=== PATIENT | female | born 1955 | race Caucasian/White ===

== ENCOUNTER 2016-12-25 11:25 | Emergency (ER) | payer SELFPAY ==
[2016-12-25] MEDS ORDERED: VASOTEC10 MG PO (17:33)
[2016-12-25] MEDS ORDERED: FUROSEMIDE20 MG PO (17:33)
[2016-12-25] MEDS ORDERED: ZOCOR20 MG PO (17:34)
[2016-12-25] MEDS ORDERED: SPIRIVA18 MCG INH (17:35)
[2016-12-25] MEDS ORDERED: K-TAB10 MEQ PO (17:36)
[2016-12-25] MEDS ORDERED: XARELTO15 MG PO (17:36)
[2016-12-26 12:58] VITALS: BMI 38.2
== END 2016-12-25 11:59 | disposition other institution (70) ==
LOC: D.ER 11:25
DX: R07.9 Chest pain, unspecified (principal)

== ENCOUNTER 2016-12-25 11:59 | Inpatient (IN) | payer SELFPAY ==
[~2016-12-25] VITALS: Ht 165.1 cm; Wt 102.3 kg
--- NOTE | ~2016-12-25 | HEMODYNAMI ---
PATIENT:FRAN GARCIA MEDICAL RECORD: [id number] : 57 LOCATION:[facility] D.2108 ADMISSION DATE: 12/25/16 Generatedon:12/27/201615:11 Patient name: FRAN GARCIA Patient #: [id number] SSN: DO B: 1955 Date of study: 12/27/2016 Page: Of Hemodynamic Procedure Report Patient Data Patient Demographics Procedure consent was obtained First Name: FRAN Gender: Female Last Name: RADHA : 1955 Middle Initial: NATALIO Age: 61 year(s) Patient #: [id number] Race: Unknown Additional ID: [id number] Contact details Address: [address] [place] [address] State: [facility]: [place] Zip code: [address] Past Medical History Allergies Allergen Reaction Date Comments Reported Penicillins 12/27/2016 Codeine 12/27/2016 Aspirin 12/27/2016 Other allergy 12/27/2016 XANAX Admission Admission Data Admission Date: 12/25/2016 Admission Time: 15:47 Room #: D.2108 Lab Results Lab Result Date: 12/27/2016 Lab Result Time: 0:00 Biochemistry Name Units Result Min Max BUN mg/dl 30 --(----)-* 7 18 Creatinine mg/dl 0.7 --(*---)-- 0.6 1.3 CBC Name Units Result Min Max Hemoglobin g/dl 12.1 *-(----)-- 13.5 17.5 Procedure Procedure Types Cath Procedure Diagnostic Procedure LHC LHC w/Coronaries Miscellaneous Procedures Moderate Sedation up to 15 minutes Procedure Description Procedure Date Procedure Date: 12/27/2016 Procedure Start Time: 15:02 Procedure End Time: 15:10 Procedure Staff Name Function Karin Spencer RN Nurse Sudeep Rodriguez RT Monitor Matt Us RT Scrub Destin Peter MD Performing Physician Procedure Data Cath Procedure Fluoroscopy Diagnostic fluoroscopy Total fluoroscopy Time: 0.8 time: 0.8 min min Diagnostic fluoroscopy Total fluoroscopy dose: dose: 197.51 mGy 197.51 mGy Contrast Material Contrast Material Type Amount (ml) Isovue 300 55 Entry Location Entry Primary Successful Side Size Upsize Upsize Entry Closure Succes sful Closure Location (Fr) 1 (Fr) 2 (Fr) Remarks Device Remarks Femoral Right 5 Fr Exoseal artery Diagnostic catheters Device Type Used For End Catheter Placement Cordis 5Fr JL 4.0 LV Angiography Catheter (MP) Cordis 5Fr 3DRC Catheter Right Coronary (MP) Angiography Cordis 5Fr Pigtail LV Angiography Catheter (MP) Procedure Complications No complications Procedure Medications Medication Administration Route Dosage Oxygen NC 2 l/min Heparin Flush Bag added to field 2 bags (1000units/500ml NS) Lidocaine 2% added to field 20 Versed I.V. 1 mg Fentanyl I.V. 50 mcg Versed I.V. 1 mg Fentanyl I.V. 50 mcg Hemodynamics Rest HGB: 12.1 (g/dl) Heart Rate: 101 (bpm) Pressure Samples Time Site Value (mmHg) Purpose Heart Use Rate(bpm) 15:06 LV 108/7,13 EDP 88 Gradients Valve Time Site Site Mean SEP/DFP Peak To Heart Use 1 2 (mmHg) (sec/min) Peak Rate (mmHg) (bpm) Aortic 15:07 LV AO 88 Snapshots Pre Cath Intra NCS Post Cath Vital Signs Time Heart Resp SPO2 NIBP (mmHg) Rhythm Pain Sedation Rate (ipm) (%) Status Level (bpm) 14:50:13 87 16 98 131/76(99) NSR 0 (11) 10(A) , No pain 14:54:35 89 18 99 127/69(107) NSR 0 (11) 10(A) , No pain 14:58:51 78 15 98 116/66(78) NSR 0 (11) 10(A) , No pain 15:03:09 87 16 97 110/62(80) NSR 0 (11) 9(A) , No pain 15:07:23 98 16 96 99/60(78) NSR 0 (11) 9(A) , No pain 15:10:21 92 16 96 96/54(73) NSR 0 (11) 9(A) , No pain Medications Time Medication Route Dose Verified Delivered Reason Notes Effec tiveness by by 14:53:18 Oxygen NC 2 Cas Karin Per l/min Chalo Spencer RN physician 14:53:28 Heparin Flush added 2 Cas Cas used for Bag to bags Chalo Isabel MD procedure (1000units/500ml field NS) 14:53:36 Lidocaine 2% added 20ml Cas Cas used for to vial Chalo Isabel MD procedure field 15:00:21 Versed I.V. 1 mg Destin Karin for [facility]. Isrrael Spencer RN sedation 15:00:29 Fentanyl I.V. 50 Destin Karin for mcg [place] RN sedation 15:02:26 Versed I.V. 1 mg Destin Karin for St. Isrrael Spencer RN sedation 15:02:38 Fentanyl I.V. 50 Destin Karin for mcg [place] RN sedation Procedure Log Time Note 14:05:18 Matt Us RT(R) sent for patient. Start room use. 14:05:19 Time tracking: Regular hours 14:05:24 Plan of Care:Hemodynamics will remain stable., Cardiac rhythm will remain stable., Comfort level will be maintained., Respiratory function will remain adequate., Patient/ family verbilizes understanding of procedure., Procedure tolerated without complication., Recovers from procedure without complications.. 14:35:32 Patient received from PCU to CCL 3 Alert and oriented. Tansferred to table in Supine position. 14:38:33 Warm blankets applied, and aileen hugger turned on for patient comfort. 14:38:34 Correct patient and procedure confirmed by team. 14:38:35 Signed procedure consent form obtained from patient. 14:38:35 ECG and BP/O2 sat monitors applied to patient. 14:45:07 H&P Date Dictated: 12/25/2016 Within 30 days and on chart., H&P Addendum completed by physician on day of procedure. (MUST COMPLETE FOR ALL OUTPATIENTS). 14:45:08 Pre-procedure instructions explained to patient. 14:45:08 Pre-op teaching completed and patient verbalized understanding. 14:45:11 Family in waiting room. 14:45:14 Patient NPO since Midnight. 14:45:15 Is the patient allergic to Iodine/contrast media? No. 14:45:34 Is patient on blood thinner?Yes 14:45:38 ACC The patient was administered the following blood thiners within the last 24 hours: Xarelto 14:45:41 Patient diabetic? No. 14:45:58 Patient not . Patient is over age 55. 14:45:59 Previous problem with sedation/anesthesia? No ? 14:46:00 Snore? Yes 14:46:01 Sleep apnea? Yes 14:46:08 Deviated septum? No 14:46:09 Opens mouth fully? Yes 14:46:10 Sticks out tongue? Yes 14:46:12 Airway obstruction? No ? 14:46:17 Dentures? No ? 14:46:32 Pre procedure: right dorsailis pedis pulse 1+ Palpable, but thready & weak; easily obliterated 14:46:35 Patient pain scale 0/10 ?. 14:49:05 Vital chart was started 14:52:28 IV patent on arrival in left antecubital with 0.9% NaCl at 10ml/hr. 14:53:00 Lab Result : BUN 30 mg/dl 14:53:00 Lab Result : Creatinine 0.7 mg/dl 14:53:00 Lab Result : Hemoglobin 12.1 g/dl 14:53:04 Lab results completed and on chart. 14:53:08 Right groin area was prepped with chlora-prep and draped in sterile fashion 14:53:09 Alarms reviewed by R. N. 14:53:09 Sharps counted by scrub and verified by R.N. 14:53:18 Oxygen 2 l/min NC was administered by Karin Spencer RN; Per physician; 14:53:24 Patient allergic to Penicillins 14:53:28 Heparin Flush Bag (1000units/500ml NS) 2 bags added to field was administered by Cas Isabel MD; used for procedure; 14:53:31 Patient allergic to Codeine 14:53:36 Lidocaine 2% 20ml vial added to field was administered by Cas Isabel MD; used for procedure; 14:53:38 Patient allergic to Aspirin 14:53:52 Patient allergic to Other allergyXANAX 14:54:00 ACC Patient presents with Unstable Angina CCS Anginal Class 3--Marked limitation of physical activity, angina occurs with ordinary activity.. 14:54:02 Baseline sample Acquired. 14:54:07 Rhythm: sinus tachycardia 14:54:08 Full Disclosure recording started 14:54:18 Use device set Femoral Dx 14:54:19 Acist Syringe opened to sterile field. 14:54:19 Bag Decanter opened to sterile field. 14:54:19 Medline Cath Pack opened to sterile field. 14:54:20 Terumo 5Fr Columbia Sheath opened to sterile field. 14:54:20 St Miquel 260cm J .035 wire opened to sterile field. 14:54:21 Acist Hand Control opened to sterile field. 14:54:22 Acist Manifold opened to sterile field. 14:54:22 Diagnostic Infinity 5Fr Multipack catheter opened to sterile field. 14:54:23 Tegaderm 4 x 4 opened to sterile field. 15:00:18 --------ALL STOP TIME OUT------ 15:00:18 Final Timeout: patient, procedure, and site verified with staff and physician. All members of the team are in agreement. 15:00:20 Right groin site verified by team. 15:00:21 Versed 1 mg I.V. was administered by Karin Spencer RN; for sedation; 15:00:29 Fentanyl 50 mcg I.V. was administered by Karin Spencer RN; for sedation; 15:00:49 Physical assessment completed. ASA score P 2 - A patient with mild systemic disease as per Destin Peter MD. 15:00:53 Sedation plan: IV Moderate Sedation Versed, Fentanyl 15:02:01 Procedure started. 15:02:10 Local anesthetic to right femoral artery with Lidocaine 2% by Destin Peter MD.INITIAL ACCESS ONLY 15:02:17 A 5 Fr sheath was inserted into the Right Femoral artery 15:02:26 Versed 1 mg I.V. was administered by Karin Spencer RN; for sedation; 15:02:38 Fentanyl 50 mcg I.V. was administered by Karin Spencer RN; for sedation; 15:02:38 Zero performed for pressure channel P1 15:02:46 A Cordis 5Fr JL 4.0 Catheter (MP) was advanced over the wire and used for LV Angiography. 15:03:37 LCA angiography performed. 15:04:23 Catheter removed. 15:04:29 A Cordis 5Fr 3DRC Catheter (MP) was advanced over the wire and used for Right Coronary Angiography. 15:04:47 RCA angiography performed. 15:05:50 Catheter removed. 15:06:04 A Cordis 5Fr Pigtail Catheter (MP) was advanced over the wire and used for LV Angiography. 15:06:08 LV angiography performed. 15:06:10 LV gram done using [facility] 15:06:11 LV hemodynamics recorded. 15:06:16 Injector settings: Ml/sec: 10, Volume: 20, 15:07:16 EF : 55 % 15:07:18 Catheter removed. 15:07:35 Contrast amount:Isovue 300 55ml. 15:07:40 Sheath removed intact; hemostasis achieved with Exoseal to the Right Femoral artery. 15:07:42 Procedure ended.(Physican Out) 15:07:57 Fluoroscopy time 00.80 minutes. 15:08:03 Fluoroscopy dose: 197.51 mGy 15:08:03 Flurop Dose total: 197.51 15:08:04 Sharps counted by scrub and verified by R.N. 15:08:05 Insertion/operative site no bleeding no hematoma. 15:08:08 Post-op/insertion site Right Femoral artery dressed using a 4 x 4 and Tegaderm. 15:08:11 Post right femoral artery:stable 15:08:12 Post Procedure Pulses reassessed and unchanged 15:08:14 Post procedure: right dorsailis pedis pulse 1+ Palpable, but thready & weak; easily obliterated. 15:08:19 Post procedure rhythm: sinus tachycardia 15:08:20 Post procedure instruction explained to patient.Patient verbalizes understanding. 15:09:50 Procedure and supply charges have been captured, reviewed, submitted and are correct. 15:10:05 Cordis 5Fr Exoseal opened to sterile field. 15:10:34 Procedure Complication : No complications 15:10:36 Vital chart was stopped 15:10:37 See physician's report for complete and final results. 15:10:40 Report given to PCU. 15:10:43 Patient transfered to PCU with Bed. 15:10:45 Procedure ended. 15:10:45 Full Disclosure recording stopped 15:10:50 End room use (Document Last) Device Usage Item Name Manufacture Quantity Catalog Hospital Part Current Minimal Lo t# / Number Charge Number Stock Stock Serial# Code Acist Acist 1 49087 [id number] 987959 [id number] 20 Syringe Medical Systems Inc Bag Microtek 1 2002S 316580 08109 209209 5 Decanter Medical Inc. Medline Cardinal 1 [id number] 863068 64864 118572 5 Cath Pack Health Terumo 5Fr Terumo 1 [id number] 908395 527322 741615 [address] [facility] Miquel 1 989638 517911 852546 923667 30 260cm J .035 wire Acist Hand Acist 1 54294 015428 200560 528096 5 Control Medical Systems Inc Acist Acist 1 29947 206826 105384 134158 5 Manifold Medical Systems Inc Diagnostic Cardinal 1 [id number] 862284 91648 541460 30 Infinity Health 5Fr Multipack catheter Tegaderm 4 3M 1 1626W 587370 285090 495479 5 x 4 Cordis 5Fr Cardinal 1 075392 5 JL 4.0 Health Catheter (MP) Cordis 5Fr Cardinal 1 390638 5 3DRC Health Catheter (MP) Cordis 5Fr Cardinal 1 638739 5 Pigtail Health Catheter (MP) Cordis 5Fr Cardinal 1 EX500 609970 075085 580693 10 Publimind Signature Audit [place] Stage Time Signature Unsigned Intra-Procedure 12/27/2016 Sudeep Rodriguez 3:11:26 PM RT(R) Signatures Monitor : Sudeep Rodriguez RT Signature : Date : Time : [facility] [address] [place] [address]
[2016-12-25 12:41] LABS: BASOPHILS 0.2 % (0-2); EOSINOPHILS 7.2 % (0-7); HEMATOCRIT 41.1 % (36.0-48.0); HEMOGLOBIN 12.9 g/dL (12-16); IMMATURE GRANULOCYTES 0.3 % (0-5); LYMPHOCYTES 24.4 % (15-50); MCH 28.8 pg (26.0-34.0); MCHC 31.4 g/dL (31.0-37.0); MCV 91.7 fL (80.0-100.0); MEAN PLATELET VOLUME 10.5 fL (7.4-10.4); MONOCYTES 9.1 % (2-11); NEUTROPHILS 58.8 % (40-80); PLATELET COUNT 245 10x3/uL (130-400); RBC 4.48 10x6/uL (4.00-5.40); RDW 14.2 % (11.5-14.5); WBC 9.5 10x3/uL (4.8-10.8)
[2016-12-25 13:04] LABS: ALBUMIN 3.2 g/dL (3.4-5.0); ALKALINE PHOSPHATASE 64 U/L (46-116); ALT (SGPT) 26 U/L (10-68); BILIRUBIN - TOTAL 0.42 mg/dL (0.2-1.3); CALC OSMOLALITY 279 mosm/kg (275-300); CALCIUM 8.8 mg/dL (8.5-10.1); CARBON DIOXIDE 34.2 mmol/L (21.0-32.0); CHLORIDE - SERUM 101 mmol/L (98-107); CREATININE - SERUM 0.8 mg/dL (0.6-1.3); GLUCOSE 124 mg/dL (74-106); POTASSIUM - SERUM 3.6 mmol/L (3.5-5.1); PROTEIN - SERUM 7.2 g/dL (6.4-8.2); SODIUM 138 mmol/L (136-145); UREA NITROGEN 22 mg/dL (7-18); eGFR NON AFRICAN AMERICAN 77 mL/min (90-120)
[2016-12-25 13:22] LABS: CKMB 5.2 U/L (0.0-3.6); CREATINE KINASE 145 UL (21-215); PRO BNP 664 pg/mL (0-125)
[2016-12-25 13:24] LABS: TROPONIN-I 0.111 ng/mL (0.000-0.060)
--- NOTE | 2016-12-25 17:09 | NUR ---
RECEIVED PATIENT TO ROOM 2108 VIA WHEELCHAIR FROM ED. RESP EVEN AND UNLABORED. ABLE TO TRANSFER SELF FROM WHEELCHAIR TO BED. PATIENT STATES SHE HAS BEEN AT [facility] FOR THE PAST 8 DAYS AND SHE WAS NOT GETTING ANY BETTER. PATIENT REQUESTING MEAL TRAY AT THIS TIME. CALL LIGHT WITHIN REACH. NO ACUTE DISTRESS. PATIENT VERY PLEASANT.
[2016-12-25] MEDS ORDERED: FUROSEMIDE20 MG PO (17:33)
[2016-12-25] MEDS ORDERED: VASOTEC10 MG PO (17:33)
[2016-12-25] MEDS ORDERED: ZOCOR20 MG PO (17:34)
[2016-12-25] MEDS ORDERED: SPIRIVA18 MCG INH (17:35)
[2016-12-25] MEDS ORDERED: K-TAB10 MEQ PO (17:36)
[2016-12-25] MEDS ORDERED: XARELTO15 MG PO (17:36)
[2016-12-25 18:10] VITALS: BP 112/76; BMI 38.3
[2016-12-25 19:24] LABS: CKMB 4.1 U/L (0.0-3.6); CREATINE KINASE 123 UL (21-215)
[2016-12-25 19:27] LABS: TROPONIN-I 0.089 ng/mL (0.000-0.060)
[2016-12-25 20:00] VITALS: BP 121/75
--- NOTE | 2016-12-25 20:14 | NUR ---
PT LYING IN BED, HOB 15 DEGREES, EYES CLOSED, RESPIRATIONS EVEN AND MILDLY LABORED, SON AT BEDSIDE. PT RECEIVING UPDRAFT TX AT THIS TIME VIA MASK. CONTINUE TO MONITOR CLOSELY.
--- NOTE | 2016-12-25 23:32 | NUR ---
PT LYING IN BED, EYES CLOSED, RESPIRATIONS EVEN AND UNLABORED AT THIS TIME. SON IN CHAIR AT BEDSIDE SLEEPING. PT ROUSABLE TO VERBAL STIMULI. CONTINUE TO MONITOR CLOSELY. I DID HOLD PTS ORDERED LOVENOX PT IS CURRENTLY TAKING XARELTO R/T HX OF DVT.
[2016-12-26 00:50] LABS: CKMB 1.9 U/L (0.0-3.6); CREATINE KINASE 79 UL (21-215); TROPONIN-I 0.055 ng/mL (0.000-0.060)
[2016-12-26 04:00] VITALS: BP 129/78
[2016-12-26 04:38] LABS: BASOPHILS 0 % (0-2); EOSINOPHILS 0 % (0-7); HEMATOCRIT 42.2 % (36.0-48.0); HEMOGLOBIN 13.2 g/dL (12-16); IMMATURE GRANULOCYTES 0.2 % (0-5); LYMPHOCYTES 15.8 % (15-50); MCH 28.6 pg (26.0-34.0); MCHC 31.3 g/dL (31.0-37.0); MCV 91.3 fL (80.0-100.0); MEAN PLATELET VOLUME 10.6 fL (7.4-10.4); MONOCYTES 2.9 % (2-11); NEUTROPHILS 81.1 % (40-80); PLATELET COUNT 292 10x3/uL (130-400); RBC 4.62 10x6/uL (4.00-5.40); RDW 14.4 % (11.5-14.5)
[2016-12-26 04:47] LABS: APTT 25.9 SECONDS (22.8-39.4); INR 1.08 (0.85-1.17); PROTIME 13.8 SECONDS (11.6-15.0)
[2016-12-26 04:48] LABS: WBC 5.9 10x3/uL (4.8-10.8)
[2016-12-26 05:06] LABS: CALC OSMOLALITY 284 mosm/kg (275-300); CARBON DIOXIDE 33.4 mmol/L (21.0-32.0); CHLORIDE - SERUM 100 mmol/L (98-107); CKMB 2.3 U/L (0.0-3.6); CREATINE KINASE 77 UL (21-215); CREATININE - SERUM 0.9 mg/dL (0.6-1.3); GLUCOSE 168 mg/dL (74-106); SODIUM 139 mmol/L (136-145); TROPONIN-I 0.046 ng/mL (0.000-0.060); UREA NITROGEN 22 mg/dL (7-18); eGFR NON AFRICAN AMERICAN 68 mL/min (90-120)
[2016-12-26 05:08] LABS: POTASSIUM - SERUM 4.2 mmol/L (3.5-5.1)
--- NOTE | 2016-12-26 05:56 | NUR ---
FOLLOW UP ECG PRINTED AND ON CHART
--- NOTE | 2016-12-26 06:18 | NUR ---
PT EASILY ROUSABLE TO VERBAL STIMULI, DENIES ANY NEEDS. CONTINUE TO MONITOR CLOSELY. CALL LIGHT IN REACH, SIDE RAILS X 2, HOB 15 DEGREES, BED LOW.
--- NOTE | 2016-12-26 08:15 | NUR ---
PT RESTING IN BED WITH EYES OPEN TOLERATING WELL VISITOR AT BEDSIDE
[2016-12-26 08:21] VITALS: BP 107/53
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
--- NOTE | 2016-12-26 10:20 | NUR ---
IV FOR CT STARTED IN R AC WITH 20GA ON 1ST ATTEMPT. DAVID WELL. WARM AND DRY. TAKING O2 RX.
[2016-12-26 11:51] VITALS: BP 91/49
[2016-12-26 12:23] LABS: CREATINE KINASE 44 UL (21-215); TROPONIN-I 0.033 ng/mL (0.000-0.060)
[2016-12-26 12:58] VITALS: Ht 165.1 cm; Wt 102.3 kg
[2016-12-26 17:11] VITALS: BP 97/57
--- NOTE | 2016-12-26 20:30 | NUR ---
SON AT BED SIDE TALK TO PT.
[2016-12-26 21:25] VITALS: BP 119/78
--- NOTE | 2016-12-26 22:10 | NUR ---
C/O OF ACID REFLUX, PAGE TO CALL AND ORDER PROTONIX.
--- NOTE | 2016-12-27 00:40 | NUR ---
SUPERVISOR PLATE FORMING AT BEDSIDE FOR VS. NEEDS ADDRESSED AT THIS TIME. CALL LIGHT IN REACH. WILL CONT TO MONITOR.
[2016-12-27 01:00] VITALS: BP 112/73
--- NOTE | 2016-12-27 02:08 | NUR ---
REST QUIETLY IN BED WITH EYE CLOSE, CALL LIGHT WITHIN REACH.
[2016-12-27 04:00] VITALS: BP 114/66
[2016-12-27 04:55] LABS: CALCIUM 9.2 mg/dL (8.5-10.1); CHLORIDE - SERUM 102 mmol/L (98-107); CREATININE - SERUM 0.7 mg/dL (0.6-1.3); GLUCOSE 210 mg/dL (74-106); POTASSIUM - SERUM 4.2 mmol/L (3.5-5.1); SODIUM 137 mmol/L (136-145); eGFR NON AFRICAN AMERICAN 90 mL/min (90-120)
[2016-12-27 04:57] LABS: BASOPHILS 0 % (0-2); EOSINOPHILS 0.1 % (0-7); HEMATOCRIT 38.5 % (36.0-48.0); HEMOGLOBIN 12.1 g/dL (12-16); IMMATURE GRANULOCYTES 0.5 % (0-5); LYMPHOCYTES 8.9 % (15-50); MCH 28.4 pg (26.0-34.0); MCHC 31.4 g/dL (31.0-37.0); MCV 90.4 fL (80.0-100.0); MEAN PLATELET VOLUME 11.2 fL (7.4-10.4); MONOCYTES 2.7 % (2-11); NEUTROPHILS 87.8 % (40-80); RBC 4.26 10x6/uL (4.00-5.40); RDW 14.6 % (11.5-14.5)
[2016-12-27 04:58] LABS: CALC OSMOLALITY 285 mosm/kg (275-300); UREA NITROGEN 30 mg/dL (7-18)
[2016-12-27 04:59] LABS: PLATELET COUNT 205 10x3/uL (130-400); WBC 8.8 10x3/uL (4.8-10.8)
--- NOTE | 2016-12-27 06:07 | NUR ---
SOLU- MEDROL GIVEN, SUPPERVISED BY LOCO Senior RN
--- NOTE | 2016-12-27 07:00 | NUR ---
RECEIVED REPORT. ASSUMED CARE OF PATIENT. RESTING WELL WITH EYES CLOSED. RESP EVEN AND UNLABORED. CALL LIGHT WITHIN REACH. NO DISTRESS. MALE VISITOR AT BEDSIDE WITH EYES CLOSED.
[2016-12-27 08:00] VITALS: BP 104/60
[2016-12-27 12:00] VITALS: BP 130/61
--- NOTE | 2016-12-27 14:10 | NUR ---
PATIENT PREOPT AT THIS TIME. NO DISTRESS. CALL LIGHT WITHIN REACH.
--- NOTE | 2016-12-27 15:34 | NUR ---
RECEIVED BACK FROM ANALYTIC PROGRAMMER. CLEAN HEART CATH. PERIPHERAL PULSES PATENT. NO BLEEDING FROM SITE. NO HEMATOMA FORMATION NOTED. CALL LIGHT WITHIN REACH. FAMILY AT BEDSIDE. NO DISTRESS.
[2016-12-27 16:00] VITALS: BP 101/58
--- NOTE | 2016-12-27 16:16 | NUR ---
CALLED FOR DISCHARGE ORDERS ON THIS PATIENT. I SPOKE WITH DR GILL AND HE STATES "THIS PATIENT HAD TWO CONTRAST DYES AND NEEDS FLUIDS OVERNIGHT. I WILL DISCHARGE HER IN THE MORNING".
--- NOTE | 2016-12-27 18:08 | NUR ---
PATIENT SITTING UP IN BED CONSUMING PM MEAL. NO BLEEDING FROM SITE. DRESSING CLEAN DRY AND INTACT. PERIPHERAL PULSES PATENT. NO DISTRESS. CALL LIGHT WITHIN REACH. BP 109/64. IV FLUIDS INFUSING ORDERED.
--- NOTE | 2016-12-27 19:10 | NUR ---
AMBULATING IN ROOM. DENIES PAIN OR ANY NEEDS. RT GROIN FROM HEART CATH TODAY C/D/I. IV IN R AC INTACT SL. IV IN L AC INTACT WITH NS INFUSING AT 100 ML/HR. TELEMETRY LEADS IN PLACE. ORIENTED TO CALL LIGHT FOR ANY NEEDS OR DISCOMFORTS.
[2016-12-27 20:47] VITALS: BP 104/52
--- NOTE | 2016-12-27 23:00 | NUR ---
REQUESTED SOME JELLO. HER SON IS PRESENT IN ROOM. NO QUESTIONS OR CONCERNS VOCIED.
[2016-12-28 00:39] VITALS: BP 101/52
--- NOTE | 2016-12-28 02:20 | NUR ---
REC TOSHA TX. REQUESTED MORE ICE WATER.
[2016-12-28 05:13] LABS: BASOPHILS 0 % (0-2); EOSINOPHILS 0 % (0-7); HEMATOCRIT 36.9 % (36.0-48.0); HEMOGLOBIN 11.5 g/dL (12-16); IMMATURE GRANULOCYTES 0.2 % (0-5); LYMPHOCYTES 7.2 % (15-50); MCH 28.8 pg (26.0-34.0); MCHC 31.2 g/dL (31.0-37.0); MCV 92.3 fL (80.0-100.0); MEAN PLATELET VOLUME 10.8 fL (7.4-10.4); MONOCYTES 3.8 % (2-11); NEUTROPHILS 88.8 % (40-80); RDW 15.1 % (11.5-14.5); WBC 8.2 10x3/uL (4.8-10.8)
[2016-12-28 05:16] LABS: PLATELET COUNT 274 10x3/uL (130-400)
[2016-12-28 05:29] LABS: CALC OSMOLALITY 286 mosm/kg (275-300); CARBON DIOXIDE 29.5 mmol/L (21.0-32.0); CHLORIDE - SERUM 103 mmol/L (98-107); CREATININE - SERUM 0.6 mg/dL (0.6-1.3); GLUCOSE 185 mg/dL (74-106); POTASSIUM - SERUM 4.6 mmol/L (3.5-5.1); SODIUM 139 mmol/L (136-145); UREA NITROGEN 24 mg/dL (7-18); eGFR NON AFRICAN AMERICAN > 90 mL/min (90-120)
[2016-12-28 05:49] VITALS: BP 124/68
[2016-12-28 05:54] LABS: CALCIUM 8.8 mg/dL (8.5-10.1)
[2016-12-28 08:00] VITALS: BP 118/62
--- NOTE | 2016-12-28 08:12 | NUR ---
AM ROUNDS - PT IS AWAKE IN BED WITH SON AT BEDSIDE. O2 AT 2L VIA NC. IV TO RIGHT AC, SL AND LEFT AC, SL. YELLOW BAND ON. PT C/O BLE PAIN 03/12. MONITOR SHOWING ST, HR 110. BED AT LOWEST POSITION, SIDE RAILS UP X2, CALL SUNG IN USE/REACH. WILL CONTINUE TO MONITOR
--- NOTE | 2016-12-28 09:27 | NUR ---
WRITTEN AND VERBAL D/C INSTRUCTIONS GIVEN TO PT. IV TO LEFT AC, D/C, CATH TIP INTACT. IV TO RIGHT AC, D/C, CATH TIP INTACT. PT TOLERATED WELL. WILL D/C
--- NOTE | 2016-12-28 09:51 | NUR ---
Patient Name: FRAN GARCIA Encounter No: [id number] : 1955 Primary Insurance: UNINSURED DISCOUNT PLAN Anticipated DC Date: 12-28-2016 Planned Disposition: Home DCP follow-up note: CM RECEIVED DISCHARGE ORDER, MET WITH PT AND HER SON IN ROOM. PT'S SON HAS NOT ATTEMPTED TO GO AND SEEK ASSISTANCE IN THE COMMUNITY. BOTH CONTINUE TO REPORT TO WALK / HITCHIKE BACK TO [place] TODAY AND REQUEST ONLY BUS PASSES TO GET THEM TO THE [facility] AT DISCHARGE. BOTH REPORT HAVING FAMILY ASSISTANCE AND MEDICAL CARE THROUGH MEDICAID THERE. BOTH DENIED FURTHER DISCHARGE NEEDS. CM PROVIDED TWO ADULT BUS PASSES, [place] BUS ROUTE MAP AND EXPLAINED BUS TRANSFER PROCESS TO GET TO THE [facility] VIA BUS IT IS THE LAST BUS STOP ON [address]. BOTH REPORTED UNDERSTANDING, PT REPORTS ABILITY TO WALK AND BOTH SHE AND HER SON CONTINUE TO INSIST THEY ARE LEAVING ON FOOT. BEDSIDE NURSE NOTIFIED OF ASSISTANCE PROVIDED BY CM. Process Mechanic: Eric Rain
--- NOTE | 2016-12-28 11:40 | NUR ---
PT LEFT FLOOR VIA WHEELCHAIR WITH VOLUNTEER. WILL D/C
== END 2016-12-28 09:30 | disposition home or self-care (01) | DRG 287 ==
LOC: OBSVTIME → D.ER 11:59 → D.M2 15:32 → D.SDCHOLD 15:47 → D.ER 15:47 → D.SDCHOLD 15:47 → D.M2 15:47 → OBSVTIME 15:48 → D.M2 17:08 → D.SDCHOLD 17:08 → D.M2 12-28 09:30
PROVIDERS: Emergency Medicine; ADMIT Family Medicine
PROC: B2111ZZ Fluoroscopy of Multiple Coronary Arteries using Low Osmolar Contrast (ICD-10-PCS; principal; 2016-12-28)
PROC: B2151ZZ Fluoroscopy of Left Heart using Low Osmolar Contrast (ICD-10-PCS; 2016-12-28)
PROC: 4A023N7 Measurement of Cardiac Sampling and Pressure, Left Heart, Percutaneous Approach (ICD-10-PCS; 2016-12-28)
DX: R07.89 Other chest pain (principal); J44.9 Chronic obstructive pulmonary disease, unspecified; I10 Essential (primary) hypertension; Z59.0 Homelessness; Z86.718 Personal history of other venous thrombosis and embolism; Z87.891 Personal history of nicotine dependence